=== PATIENT | female | born 1985 ===

== ENCOUNTER 2018-07-11 12:25 | Emergency (ER) | payer OTHER ==
[2018-07-11 12:26] VITALS: BMI 20.1
[2018-07-11 12:36] VITALS: O2SAT 98
--- NOTE | 2018-07-11 15:55 | C.PDOC ---
History Of Present Illness 32 year old female is brought to the ED by EMS for evaluation of right ankle and foot pain. 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 Patient is now c/o pain in the right ankle and right foot. Patient states that after the fall he was not able to ambulate. Patient denies any other injuries, numbness, weakness, LOC. Time Seen by Provider: 07/11/18 12:58 Chief Complaint (Nursing): Lower Extremity Problem/Injury History Per: Patient, EMS History/Exam Limitations: no limitations Onset/Duration Of Symptoms: Hrs Current Symptoms Are (Timing): Still Present Recent travel outside of the [place]: No Additional History Per: Patient - Ankle/Foot Description Of Injury: Fell Currently Unable To: Bend Or Move Past Medical History Reviewed: Historical Data, Nursing Documentation, Vital Signs Vital Signs: Last Vital Signs Temp 98.3 F 07/11/18 16:01 Pulse 85 07/11/18 15:55 Resp 16 07/11/18 16:01 BP 128/73 07/11/18 16:01 Pulse Ox 98 07/11/18 16:01 - Medical History PMH: No Chronic Diseases Surgical History: No Surg Hx - [facility] Procedures MANUAL ASSIST DELIV NEC (03/17/15) Family History: States: Unknown Family Hx - Social History Hx Tobacco Use: No Hx Alcohol Use: Yes Hx Substance Use: Yes - Immunization History Hx Tetanus Toxoid Vaccination: No Hx Influenza Vaccination: No Hx Pneumococcal Vaccination: No Review Of Systems Constitutional: Negative for: Fever, Chills Cardiovascular: Negative for: Chest Pain, Palpitations Respiratory: Negative for: Cough, Shortness of Breath Gastrointestinal: Negative for: Nausea, Vomiting, Abdominal Pain Musculoskeletal: Positive for: Leg Pain Skin: Negative for: Rash Neurological: Negative for: Weakness, Numbness Physical Exam - Physical Exam Appears: Non-toxic, No Acute Distress Skin: Normal Color, Warm, Dry Head: Atraumatic, Normacephalic Eye(s): bilateral: Normal Inspection Neck: Normal ROM, No Midline Cervical Tenderness, Supple Chest: Symmetrical Cardiovascular: Rhythm Regular Respiratory: Normal Breath Sounds, No Rales, No Rhonchi, No Wheezing Extremity: Normal ROM (knees and hips), Tenderness (right foot, lateral malleolus), Capillary Refill (< 2 seconds), No Deformity, Swelling (right foot, lateral malleolus) Pulses: Left Dorsalis Pedis: Normal, Right Dorsalis Pedis: Normal Neurological/Psych: Oriented x3, Normal Speech, Normal Motor, Normal Sensation Gait: Steady ED Course And Treatment O2 Sat by Pulse Oximetry: 98 (ON RA) Pulse Ox Interpretation: Normal - Other Rad Right Tib/Fib X-Ray: Read By Radiologist Interpretation: Date of service: 07/11/2018. PROCEDURE: Radiographs of the right tibia and fibula. HISTORY: leg pain, fall. COMPARISON: None available. TECHNIQUE: Frontal and lateral views obtained. FINDINGS: BONES: No fracture or destructive lesion. JOINT SPACES: Unremarkable. OTHER FINDINGS : None. IMPRESSION: Unremarkable radiographs of the right tibia and fibula. Left foot X-Ray: Read By Radiologist Interpretation: Date of service: 07/11/2018. PROCEDURE: Left Foot Radiographs. HISTORY: FOOT PAIN, FALL. COMPARISON: None. FINDINGS: BONES: Normal. No fracture. JOINTS: Normal. SOFT TISSUES: Normal. OTHER FINDINGS : None. IMPRESSION: Normal left foot radiographs. Right foot X-Ray: Read By Radiologist Interpretation: Date of service: 07/11/2018. PROCEDURE: Right Foot Radiographs. HISTORY: trauma. COMPARISON: None. FINDINGS: BONES: Normal. No fracture. JOINTS: Normal. SOFT TISSUES: Normal. OTHER FINDINGS: None. IMPRESSION: Normal right foot radiographs. Right ankle X-Ray: Read By Radiologist Interpretation: Date of service: 07/11/2018. PROCEDURE: Right Ankle Radiographs. HISTORY: TRAUMA. COMPARISON: None. FINDINGS: BONES: Normal. No fracture. JOINTS: Normal. No osteoarthritis. Ankle mortise maintained. Talar dome intact. SOFT TISSUES: Normal. OTHER FINDINGS: None. IMPRESSION: Normal right ankle radiographs. Medical Decision Making Medical Decision Making: Plan: * Tylenol 975 mg PO * Motrin 600 mg PO Patient was given aircast in the right ankle, upon crutch walk training pat states she is not able to walk due to having left foot pain. X -Ray was ordered which was negative as well. Disposition - Disposition Referrals: [facility] [Outside] Barry Ng III, MD [Staff Provider] - Disposition: HOME/ ROUTINE Disposition Time: 15:52 Condition: GOOD Additional Instructions: Follow up with the Orthopedist within 1-2 weeks. Return if worsened. 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 - Scribe Statement The provider has reviewed the documentation as recorded by the Scribe Carlos Douglas All medical record entries made by the Scribe were at my direction and personally dictated by me. I have reviewed the chart and agree that the record accurately reflects my personal performance of the history, physical exam, medical decision making, and the department course for this patient. I have also personally directed, reviewed, and agree with the discharge instructions and disposition.
[2018-07-11 15:56] VITALS: PULSE 85
[2018-07-11 16:01] VITALS: BP 128/73; RESP 16; TEMP 98.3
--- NOTE | 2018-07-11 16:34 | RAD ---
Date of service: 07/11/2018 PROCEDURE: Left Foot Radiographs. HISTORY: FOOT PAIN, FALL COMPARISON: None. FINDINGS: BONES: Normal. No fracture. JOINTS: Normal. SOFT TISSUES: Normal. OTHER FINDINGS: None. IMPRESSION: Normal left foot radiographs.
--- NOTE | 2018-07-11 16:35 | RAD ---
Date of service: 07/11/2018 PROCEDURE: Radiographs of the right tibia and fibula. HISTORY: leg pain, fall COMPARISON: None available TECHNIQUE: Frontal and lateral views obtained. FINDINGS: BONES: No fracture or destructive lesion. JOINT SPACES: Unremarkable. OTHER FINDINGS: None. IMPRESSION: Unremarkable radiographs of the right tibia and fibula.
--- NOTE | 2018-07-11 16:37 | RAD ---
Date of service: 07/11/2018 PROCEDURE: Right Ankle Radiographs. HISTORY: TRAUMA COMPARISON: None FINDINGS: BONES: Normal. No fracture. JOINTS: Normal. No osteoarthritis. Ankle mortise maintained. Talar dome intact SOFT TISSUES: Normal. OTHER FINDINGS: None. IMPRESSION: Normal right ankle radiographs.
--- NOTE | 2018-07-11 16:38 | RAD ---
Date of service: 07/11/2018 PROCEDURE: Right Foot Radiographs. HISTORY: trauma COMPARISON: None. FINDINGS: BONES: Normal. No fracture. JOINTS: Normal. SOFT TISSUES: Normal. OTHER FINDINGS: None. IMPRESSION: Normal right foot radiographs.
== END 2018-07-11 16:29 | disposition home or self-care (01) ==
LOC: C.ER 12:25
DX: S93.401A Sprain of unspecified ligament of right ankle, initial encounter (principal); W10.9XXA Fall (on) (from) unspecified stairs and steps, initial encounter